=== PATIENT | female | born 1990 | race American Indian/Alaskan Native ===

== ENCOUNTER 2017-04-05 02:28 | Emergency (ER) | payer MEDICAID ==
[2017-04-05 03:04] LABS: Basophils % (Auto) 0.8 % (0.0-1.8); Eosinophils % (Auto) 2.1 % (0.0-4.3); Hemoglobin 12.9 gm/dl (10.1-14.3); Mean Corpuscular HGB Conc 35 % (30-34); Mean Corpuscular Hemoglobin 32 pg (28-32); Mean Corpuscular Volume 91 fl (79-97); Platelet Count 149 K/mm3 (140-440); Red Blood Count 4.07 M/mm3 (3.65-5.03); Red Cell Distribution Width 12.1 % (13.2-15.2); White Blood Count 4.6 K/mm3 (4.5-11.0)
[2017-04-05 03:37] LABS: Bacteria,Urine 1+ /HPF (Negative); Bilirubin,Urine NEG (Negative); Blood,Urine LG (Negative); Ketones,Urine NEG (Negative); Leukocyte Esterase,Urine TR (Negative); Nitrite,Urine NEG (Negative); Protein,Urine <15 mg/dL mg/dL (Negative); Urobilinogen,Urine < 2.0 mg/dL (<2.0)
[2017-04-05 09:19] VITALS: BP 118/73
[2017-04-05] MEDS ORDERED: NACL 0.9% 1000 ML 2,000 ML IV ONE (10:11)
--- NOTE | 2017-04-05 10:12 | Emergency Department Report ---
ED Female HPI - General Chief complaint: Vaginal Bleeding Stated complaint: VAGINAL BLEEDING Time Seen by Provider: 04/05/17 10:11 Source: patient Mode of arrival: Ambulatory Limitations: No Limitations - History of Present Illness Initial comments: This is a 27-year-old female who is previously unknown to this provider. She is 2, para 0. She can't recall her last menstrual period, although she thinks it was 2 months ago. Patient reports a lifetime history of irregular menstruation. Patient presents to the ER with vaginal bleeding. It started this morning. It is intermittent, and does not have exacerbating or relieving factors, and it does not radiate anywhere. Patient denies headache, neck pain, chest pain, shortness of breath, urinary symptoms, patient does not think that she is today. MD Complaint: vaginal bleeding -: Gradual Consistency: intermittent Improves with: none Worsens with: none Are you Now?: Yes (patient found to be in the ER, but did not know that she was pregn) Associated Symptoms: vaginal bleeding, abdominal pain (cramping). denies: vaginal discharge, nausea/vomiting, fever/chills, headaches, loss of appetite, dysuria, hematuria, shortness of breath, syncope, weakness - Related Data Sexually active: Yes Previous Rx's Medication Instructions Recorded Last Taken Type Ibuprofen [Motrin] 600 mg PO Q8H PRN #30 tablet 03/21/15 Unknown Rx Ondansetron [Zofran Odt] 4 mg PO Q4H #7 tab.rapdis 03/21/15 Unknown Rx Sulfamethoxazole/Trimethoprim 1 each PO BID #14 tablet 03/21/15 Unknown Rx [Bactrim DS TAB] traMADol [Ultram] 50 mg PO Q6HR PRN #14 tablet 03/21/15 Unknown Rx Doxylamine Succinate/Vit B6 1 each PO QHS PRN #30 tablet. 04/05/17 Unknown Rx [Nilsa Stearns 10-10 mg Tablet] Vit Calc,Iron,Folic 1 each PO QDAY #30 tablet 04/05/17 Unknown Rx [ Vitamins] Allergies Allergy/AdvReac Type Severity Reaction Status Date / Time No Known Allergies Allergy Unverified 03/21/15 17:27 ED Review of Systems ROS: Stated complaint: VAGINAL BLEEDING Other details as noted in HPI Constitutional: denies: fever, malaise Eyes: denies: vision change ENT: denies: epistaxis Respiratory: denies: cough Cardiovascular: denies: chest pain Gastrointestinal: denies: vomiting Genitourinary: abnormal menses. denies: dysuria Musculoskeletal: denies: back pain Skin: denies: lesions Neurological: denies: weakness ED Past Medical Hx - Past Medical History Previous Medical History?: No - Surgical History Past Surgical History?: No - Social History Smoking Status: Never Smoker Substance Use Type: None - Medications Home Medications: Home Medications Medication Instructions Recorded Confirmed Last Taken Type Ibuprofen [Motrin] 600 mg PO Q8H PRN #30 tablet 03/21/15 Unknown Rx Ondansetron [Zofran Odt] 4 mg PO Q4H #7 tab.rapdis 03/21/15 Unknown Rx Sulfamethoxazole/Trimethoprim 1 each PO BID #14 tablet 03/21/15 Unknown Rx [Bactrim DS TAB] traMADol [Ultram] 50 mg PO Q6HR PRN #14 tablet 03/21/15 Unknown Rx Doxylamine Succinate/Vit B6 1 each PO QHS PRN #30 tablet. 04/05/17 Unknown Rx [Nilsa Dr 10-10 mg Tablet] Vit Calc,Iron,Folic 1 each PO QDAY #30 tablet 04/05/17 Unknown Rx [ Vitamins] ED Physical Exam - General Limitations: No Limitations General appearance: alert, in no apparent distress - Head Head exam: Present: atraumatic, normocephalic - Eye Eye exam: Present: normal appearance, EOMI. Absent: nystagmus - ENT ENT exam: Present: normal exam, normal orophraynx, mucous membranes moist, normal external ear exam - Neck Neck exam: Present: normal inspection, full ROM. Absent: tenderness, meningismus - Respiratory Respiratory exam: Present: normal lung sounds bilaterally. Absent: respiratory distress, chest wall tenderness - Cardiovascular Cardiovascular Exam: Present: regular rate, normal rhythm, normal heart sounds. Absent: systolic murmur, diastolic murmur, rubs, gallop - GI/Abdominal GI/Abdominal exam: Present: soft, normal bowel sounds. Absent: distended, tenderness, guarding, rebound, rigid, pulsatile mass - External exam: Present: normal external exam Speculum exam: Present: normal speculum exam, vaginal bleeding. Absent: cervical discharge Bi-manual exam: Present: normal bi-manual exam, other (escorted by nurse selene dela cruz). Absent: cervical motion tendernes, adnexal tenderness, adnexal mass - Extremities Exam Extremities exam: Present: normal inspection, full ROM, normal capillary refill. Absent: pedal edema, joint swelling, calf tenderness - Back Exam Back exam: Present: normal inspection, full ROM. Absent: tenderness, CVA tenderness (R), paraspinal tenderness, vertebral tenderness - Neurological Exam Neurological exam: Present: alert, oriented X3, CN II-XII intact, other ( Extraocular movements intact. Tongue midline. No facial droop. Facial sensation intact to light touch in the V1, V2, V3 distribution bilaterally. 5 and 5 strength in 4 extremities.. Sensation is intact to light touch in 4 extremities.). Absent: motor sensory deficit - Psychiatric Psychiatric exam: Present: normal affect, normal mood - Skin Skin exam: Present: warm, dry, intact, normal color. Absent: rash ED Course Vital Signs 04/05/17 04/05/17 02:33 09:18 Temperature 98.4 F 98.6 F Pulse Rate 78 18 L Respiratory 18 18 Rate Blood Pressure 113/69 Blood Pressure 118/73 [Left] O2 Sat by Pulse 98 99 Oximetry - Reevaluation(s) Reevaluation #1: 04/05/17 11:07 Differential diagnosis, including without limited to: Miscarriage, threatened miscarriage, , ectopic Assessment and plan: 27-year-old female with vaginal bleeding, found to be . She is afebrile with normal vital signs, had a transient episode of hypotension. When this provider walks into the room to evaluate the patient, the patient is playing in a cellular phone, and is in no distress. Her abdomen is soft and benign, with no rebound, guarding or peritoneal signs. Transvaginal ultrasound is ordered, type and screen is ordered. Gynecologic exam is pending at this time. Urinalysis appreciated, patient does not endorse any urinary symptoms. Reevaluation #2: 04/05/17 13:05 Vital signs have remained stable his previous evaluation, no further episodes of hypotension, patient playing on a cellular phone, therefore IV fluids canceled. Pelvic ultrasound confirms IUP. Patient given appropriate anticipatory guidance. Patient will be instructed to follow up with outpatient gynecology. Return precautions are reviewed. ED Medical Decision Making - Lab Data Result diagrams: 04/05/17 02:43 Vital Signs 04/05/17 04/05/17 02:33 09:18 Temperature 98.4 F 98.6 F Pulse Rate 78 18 L Respiratory 18 18 Rate Blood Pressure 113/69 Blood Pressure 118/73 [Left] O2 Sat by Pulse 98 99 Oximetry Lab Results 04/05/17 04/05/17 04/05/17 Range/Units 02:43 02:43 02:43 WBC 4.6 (4.5-11.0) K/mm3 RBC 4.07 (3.65-5.03) M/mm3 Hgb 12.9 (10.1-14.3) gm/dl Hct 37.0 (30.3-42.9) % MCV 91 (79-97) fl MCH 32 (28-32) pg MCHC 35 H (30-34) % RDW 12.1 L (13.2-15.2) % Plt Count 149 (140-440) K/mm3 Lymph % (Auto) 49.9 H (13.4-35.0) % [place] % (Auto) 9.9 H (0.0-7.3) % Eos % (Auto) 2.1 (0.0-4.3) % Baso % (Auto) 0.8 (0.0-1.8) % Lymph # 2.3 (1.2-5.4) K/mm3 [place] # 0.5 (0.0-0.8) K/mm3 Eos # 0.1 (0.0-0.4) K/mm3 Baso # 0.0 (0.0-0.1) K/mm3 Seg Neutrophils % 37.3 L (40.0-70.0) % Seg Neutrophils # 1.7 L (1.8-7.7) K/mm3 HCG, Qual Positive (Negative) HCG, Quant 17343 H (0-4) mIU/mL Urine Color (Yellow) Urine Turbidity (Clear) Urine pH (5.0-7.0) Ur Specific [place] (1.003-1.030) Urine Protein (Negative) mg/dL Urine Glucose (UA) (Negative) mg/dL Urine Ketones (Negative) mg/dL Urine Blood (Negative) Urine Nitrite (Negative) Urine Bilirubin (Negative) Urine Urobilinogen (<2.0) mg/dL Ur Leukocyte Esterase (Negative) Urine WBC (Auto) (0.0-6.0) /HPF Urine RBC (Auto) (0.0-6.0) /HPF U Epithel Cells (Auto) (0-13.0) /HPF Urine Bacteria (Auto) (Negative) /HPF Blood Type Antibody Screen 04/05/17 04/05/17 Range/Units 02:43 Unknown WBC (4.5-11.0) K/mm3 RBC (3.65-5.03) M/mm3 Hgb (10.1-14.3) gm/dl Hct (30.3-42.9) % MCV (79-97) fl MCH (28-32) pg MCHC (30-34) % RDW (13.2-15.2) % Plt Count (140-440) K/mm3 Lymph % (Auto) (13.4-35.0) % [place] % (Auto) (0.0-7.3) % Eos % (Auto) (0.0-4.3) % Baso % (Auto) (0.0-1.8) % Lymph # (1.2-5.4) K/mm3 [place] # (0.0-0.8) K/mm3 Eos # (0.0-0.4) K/mm3 Baso # (0.0-0.1) K/mm3 Seg Neutrophils % (40.0-70.0) % Seg Neutrophils # (1.8-7.7) K/mm3 HCG, Qual (Negative) HCG, Quant (0-4) mIU/mL Urine Color Yellow (Yellow) Urine Turbidity Clear (Clear) Urine pH 7.0 (5.0-7.0) Ur Specific [place] 1.011 (1.003-1.030) Urine Protein <15 mg/dl (Negative) mg/dL Urine Glucose (UA) Neg (Negative) mg/dL Urine Ketones Neg (Negative) mg/dL Urine Blood Lg (Negative) Urine Nitrite Neg (Negative) Urine Bilirubin Neg (Negative) Urine Urobilinogen < 2.0 (<2.0) mg/dL Ur Leukocyte Esterase Tr (Negative) Urine WBC (Auto) 31.0 H (0.0-6.0) /HPF Urine RBC (Auto) 87.0 (0.0-6.0) /HPF U Epithel Cells (Auto) < 1.0 (0-13.0) /HPF Urine Bacteria (Auto) 1+ (Negative) /HPF Blood Type O POSITIVE Antibody Screen Negative Critical care attestation.: If time is entered above; I have spent that time in minutes in the direct care of this critically ill patient, excluding procedure time. ED Disposition Clinical Impression: Miscarriage Disposition: DC-01 TO HOME OR SELFCARE Is pt being admited?: No Does the pt Need Aspirin: No Condition: Stable Instructions: Threatened Miscarriage (ED) Additional Instructions: As we discussed, patient is . Avoid consumption of Ultram, narcotics, alcohol, ibuprofen, Motrin, Naprosyn, Aleve, aspirin. Rest and avoid heavy lifting, and avoid strenuous physical activity. Do not engage in sex or sexual activity until cleared by a analytical chemist. Follow-up with a analytical chemist as soon as possible. Return to the ER right away with new pain, worsened pain, migration of pain, fevers, chills, lethargy, irritability, projectile vomiting, confusion, change in mental status, bleeding more than 2 pads per hour, dizziness, lightheadedness. Prescriptions: Doxylamine Succinate/Vit B6 [Nilsa Stearns 10-10 mg Tablet] 1 each PO QHS PRN #30 tablet.dr CRAVEN Reason: Nausea Vit Calc,Iron,Folic [ Vitamins] 1 each PO QDAY #30 tablet Referrals: [facility] [Primary Care Provider] - 3-5 Days [facility] [Provider Group] - 3-5 Days [facility] [Provider Group] - 3-5 Days [facility] [Provider Group] - 3-5 Days
--- NOTE | 2017-04-05 11:29 | Ultrasound Report ---
ULTRASOUND OB LESS THAN 14 WEEKS FETUS ULTRASOUND OB TRANSVAGINAL HISTORY: Vaginal bleeding during . COMPARISON: None. TECHNIQUE: Transabdominal and transvaginal ultrasound with color doppler interrogation. FINDINGS: Uterus: The uterus is anteverted and measures 11.5 x 5.5 x 7.3 cm. No uterine fibroid disease is appreciated. The cervix is unremarkable. Endometrium: An intrauterine gestational sac containing a yolk sac is identified. No clear or pole at this time. No heart tones could be detected. Gestational sac diameter measures 2.0 cm which correlates with a 6 week, and 6 day . Estimated due date 11/23/16. Right ovary: 3.4 x 1.5 x 3.6 cm. No focal abnormality. Left ovary: 4.0 x 1.7 x 2.1 cm. A 2.1 cm corpus luteum cyst is suspected in the left ovary. No pelvic fluid or mass is identified. Normal color doppler interrogation. A small subchorionic hemorrhage is seen posterior to the gestational sac. IMPRESSION: An intrauterine gestational sac containing a small yolk sac is identified. No discrete pole or heart tones could be demonstrated at this time. This could represent a normal early intrauterine . Blighted ovum cannot be excluded. Close interval followup is recommended Small subchorionic hemorrhage.
== END 2017-04-05 13:35 | disposition home or self-care (01) ==
LOC: ED 02:28
DX: O03.9 Complete or unspecified spontaneous abortion without complication (principal); Z3A.00 Weeks of gestation of pregnancy not specified
CPT/HCPCS: 36415; 76801; 76817; 81001; 84702; 84703; 85025; 86850; 86900; 86901; 99284

== ENCOUNTER 2017-04-28 16:41 | Emergency (ER) | payer MEDICAID ==
[2017-04-28 17:52] LABS: Basophils % (Auto) 0.7 % (0.0-1.8); Eosinophils % (Auto) 0.1 % (0.0-4.3); Hemoglobin 12.8 gm/dl (10.1-14.3); Lymphocytes # (Auto) 0.7 K/mm3 (1.2-5.4); Lymphocytes % (Auto) 13.3 % (13.4-35.0); Mean Corpuscular HGB Conc 35 % (30-34); Mean Corpuscular Hemoglobin 32 pg (28-32); Mean Corpuscular Volume 91 fl (79-97); Monocytes # (Auto) 0.7 K/mm3 (0.0-0.8); Monocytes % (Auto) 13.3 % (0.0-7.3); Platelet Count 146 K/mm3 (140-440); Red Blood Count 4.05 M/mm3 (3.65-5.03); Red Cell Distribution Width 11.7 % (13.2-15.2)
[2017-04-28 19:03] LABS: Bacteria,Urine 1+ /HPF (Negative); Bilirubin,Urine NEG (Negative); Blood,Urine MOD (Negative); Color,Urine Red (Yellow); Mucus,Urine 2+ /HPF; Nitrite,Urine NEG (Negative); Urobilinogen,Urine < 2.0 mg/dL (<2.0)
[2017-04-29] MEDS ORDERED: TYLENOL PO ONE (04:17)
[2017-04-29] MEDS ORDERED: TYLENOL ONE (04:20)
--- NOTE | 2017-04-29 06:22 | Ultrasound Report ---
FINAL REPORT EXAM: US OB < = 14 WEEKS FETUS HISTORY: abd pain COMPARISONS: None. FINDINGS: Transabdominal and transvaginal grayscale, color and M-mode 1st trimester ultrasound Fluid-filled irregularly-shaped sac in the endometrium contains a suggested 2-3 millimeter yolk sac. No pole identified. Mean sac diameter is approximately 28 millimeters, which corresponds to estimated gestational age of 7 weeks 6 days and delivery date of 12/10/2017. No perigestational hemorrhage. No significant free fluid in the pelvis. The left ovary is not visualized. The right ovary is sonographically unremarkable and measures 3.3 x 1.2 x 2.2 cm. IMPRESSION: Probable gestational sac with irregular morphology contains a suggested morphologically normal yolk sac, however no pole is identified. Estimated gestational age is 7 weeks 6 days based on mean sac diameter. A pole should be visualized based on mean sac diameter. Differential diagnosis failed/anembryonic . Close interval clinical and sonographic follow-up is suggested.
--- NOTE | 2017-04-29 06:24 | Ultrasound Report ---
FINAL REPORT EXAM: US OB TRANSVAGINAL HISTORY: abd pain COMPARISONS: None. FINDINGS: Transvaginal grayscale and color Doppler 1st trimester ultrasound Fluid-filled irregularly-shaped sac in the endometrium contains a suggested 2-3 millimeter yolk sac. No pole identified. Mean sac diameter is approximately 28 millimeters, which corresponds to estimated gestational age of 7 weeks 6 days and delivery date of 12/10/2017. A small perigestational hemorrhage may be present involving less than 50 percent of the gestational sac surface area. No significant free fluid in the pelvis. The left ovary is not visualized. The right ovary is sonographically unremarkable and measures 3.3 x 1.2 x 2.2 cm. IMPRESSION: Probable gestational sac with irregular morphology contains a suggested morphologically normal yolk sac, however no pole is identified. Estimated gestational age is 7 weeks 6 days based on mean sac diameter. A pole should be visualized based on mean sac diameter. Differential diagnosis includes failed/anembryonic . Close interval clinical and sonographic follow-up is suggested.
[2017-04-29] MEDS ORDERED: MACROBID PO ONE (06:43)
--- NOTE | 2017-04-29 07:13 | Emergency Department Report ---
ED Female HPI - General Chief complaint: Abdominal Pain Stated complaint: ABDOMINAL PAIN/VAGINAL BLEEDING Time Seen by Provider: 04/29/17 06:40 Source: patient, old records reviewed Mode of arrival: Ambulatory Limitations: No Limitations - History of Present Illness Initial comments: 27 year old female with no significant past medical history presents to the hospital currently with complaints of vaginal bleeding since April 05 that increased when she presented to the hospital on the . This is patient's second and she has a history of one . Patient was seen and evaluated here on the for vaginal bleeding. Ultrasound showed IUP with gestational sac and yolk sac without pole. Also a small subchorionic hemorrhages visualized. Patient has not yet seen MACHINE SPLITTER since that visit. She has her first appointment scheduled for my TIME STUDY ENGINEER for 320 today. She presents here because bleeding increased with 10/10 cramping pain. Patient is a half a bag of regular pads in one day with clots. She states bleeding has improved since in the ED. Pain improved with Tylenol received in the ED. Patient denies dysuria, fever, or syncope. - Related Data Previous Rx's Medication Instructions Recorded Last Taken Type Ibuprofen [Motrin] 600 mg PO Q8H PRN #30 tablet 03/21/15 Unknown Rx Ondansetron [Zofran Odt] 4 mg PO Q4H #7 tab.rapdis 03/21/15 Unknown Rx Sulfamethoxazole/Trimethoprim 1 each PO BID #14 tablet 03/21/15 Unknown Rx [Bactrim DS TAB] traMADol [Ultram] 50 mg PO Q6HR PRN #14 tablet 03/21/15 Unknown Rx Doxylamine Succinate/Vit B6 1 each PO QHS PRN #30 tablet. 04/05/17 Unknown Rx [Nilsa Stearns 10-10 mg Tablet] Vit Calc,Iron,Folic 1 each PO QDAY #30 tablet 04/05/17 Unknown Rx [ Vitamins] Nitrofurantoin [place]/M-Cryst 100 mg PO Q12HR #14 capsule 04/29/17 Unknown Rx [Macrobid CAP] Allergies Allergy/AdvReac Type Severity Reaction Status Date / Time No Known Allergies Allergy Unverified 03/21/15 17:27 ED Review of Systems ROS: Stated complaint: ABDOMINAL PAIN/VAGINAL BLEEDING Other details as noted in HPI Comment: All other systems reviewed and negative Other: Constitutional: No fevers chills Eyes: No eye pain visual changes ENT: No ear pain or throat pain Neck: Denies pain Respiratory: Denies cough wheezing shortness of breath Cardiovascular: Denies chest pain, palpitations, syncope GI: Denies nausea, vomiting, diarrhea : Denies dysuria Musculoskeletal: Denies back pain Skin: Denies rash, lesions, erythema Neurologic: Denies headache, numbness, weakness Psychiatric: Denies suicidal ideation, hallucinations ED Past Medical Hx - Past Medical History Previous Medical History?: No - Surgical History Past Surgical History?: No - Social History Smoking Status: Current Every Day Smoker Substance Use Type: None - Medications Home Medications: Home Medications Medication Instructions Recorded Confirmed Last Taken Type Ibuprofen [Motrin] 600 mg PO Q8H PRN #30 tablet 03/21/15 Unknown Rx Ondansetron [Zofran Odt] 4 mg PO Q4H #7 tab.rapdis 03/21/15 Unknown Rx Sulfamethoxazole/Trimethoprim 1 each PO BID #14 tablet 03/21/15 Unknown Rx [Bactrim DS TAB] traMADol [Ultram] 50 mg PO Q6HR PRN #14 tablet 03/21/15 Unknown Rx Doxylamine Succinate/Vit B6 1 each PO QHS PRN #30 tablet. 04/05/17 Unknown Rx [Dicshin Dr 10-10 mg Tablet] Vit Calc,Iron,Folic 1 each PO QDAY #30 tablet 04/05/17 Unknown Rx [ Vitamins] Nitrofurantoin [place]/M-Cryst 100 mg PO Q12HR #14 capsule 04/29/17 Unknown Rx [Macrobid CAP] ED Physical Exam - General Limitations: No Limitations - Other Other exam information: General: No limitations, patient is alert in no acute distress Head exam: Atraumatic, normocephalic Eyes exam: Normal appearance ENT: Moist mucous membrane, normal oropharynx Neck exam: Normal inspection, full range of motion, no meningismus nontender Respiratory exam: Clear to auscultation bilateral, no wheezes, rales, crackles Cardiovascular: Normal rate and rhythm, normal heart sounds Abdomen: Soft, nondistended, mild suprapubic tenderness, with normal bowel sounds, no rebound, or guarding Extremity: Full range of motion normal inspection no deformity Back: Normal Inspection, full range of motion, no tenderness Neurologic: Alert, oriented x3, cranial nerves intact, no motor or sensory deficit Psychiatric: normal affect, normal mood Skin: Warm, dry, intact ED Course Vital Signs 04/28/17 04/29/17 04/29/17 17:17 00:50 04:25 Temperature 99.9 F H 98.4 F Pulse Rate 106 H 94 H Respiratory 16 14 18 Rate Blood Pressure 111/64 107/65 Blood Pressure [Left] O2 Sat by Pulse 100 100 Oximetry 04/29/17 04/29/17 04/29/17 05:05 05:25 06:40 Temperature 98.5 F Pulse Rate 97 H Respiratory 16 18 16 Rate Blood Pressure Blood Pressure 107/63 [Left] O2 Sat by Pulse 95 95 Oximetry 04/29/17 07:15 Temperature Pulse Rate 78 Respiratory 18 Rate Blood Pressure Blood Pressure 105/79 [Left] O2 Sat by Pulse 98 Oximetry - Reevaluation(s) Reevaluation #1: 04/29/17 07:17 Tylenol given prior to my evaluation with reduction in pain. Macrobid ordered for urine leukocytosis - Consultations Consultation #1: 04/29/17 07:[address] Michael marketing operations specialist physician for my [employer] STUDY ENGINEER. Agrees with disposition to follow up in office today for probable miscarriage ED Medical Decision Making - Lab Data Result diagrams: 04/28/17 17:28 Lab Results 04/28/17 04/28/17 04/28/17 Range/Units 17:28 17:28 17:30 WBC 5.6 (4.5-11.0) K/mm3 RBC 4.05 (3.65-5.03) M/mm3 Hgb 12.8 (10.1-14.3) gm/dl Hct 37.0 (30.3-42.9) % MCV 91 (79-97) fl MCH 32 (28-32) pg MCHC 35 H (30-34) % RDW 11.7 L (13.2-15.2) % Plt Count 146 (140-440) K/mm3 Lymph % (Auto) 13.3 L (13.4-35.0) % [place] % (Auto) 13.3 H (0.0-7.3) % Eos % (Auto) 0.1 (0.0-4.3) % Baso % (Auto) 0.7 (0.0-1.8) % Lymph # 0.7 L (1.2-5.4) K/mm3 [place] # 0.7 (0.0-0.8) K/mm3 Eos # 0.0 (0.0-0.4) K/mm3 Baso # 0.0 (0.0-0.1) K/mm3 Seg Neutrophils % 72.6 H (40.0-70.0) % Seg Neutrophils # 4.0 (1.8-7.7) K/mm3 HCG, Quant 2575 H (0-4) mIU/mL Urine Color (Yellow) Urine Turbidity (Clear) Urine pH (5.0-7.0) Ur Specific [place] (1.003-1.030) Urine Protein (Negative) mg/dL Urine Glucose (UA) (Negative) mg/dL Urine Ketones (Negative) mg/dL Urine Blood (Negative) Urine Nitrite (Negative) Urine Bilirubin (Negative) Urine Urobilinogen (<2.0) mg/dL Ur Leukocyte Esterase (Negative) Urine WBC (Auto) (0.0-6.0) /HPF Urine RBC (Auto) (0.0-6.0) /HPF U Epithel Cells (Auto) (0-13.0) /HPF Urine Bacteria (Auto) (Negative) /HPF Urine Mucus /HPF Blood Type O POSITIVE Antibody Screen Negative 04/28/17 Range/Units 18:06 WBC (4.5-11.0) K/mm3 RBC (3.65-5.03) M/mm3 Hgb (10.1-14.3) gm/dl Hct (30.3-42.9) % MCV (79-97) fl MCH (28-32) pg MCHC (30-34) % RDW (13.2-15.2) % Plt Count (140-440) K/mm3 Lymph % (Auto) (13.4-35.0) % [place] % (Auto) (0.0-7.3) % Eos % (Auto) (0.0-4.3) % Baso % (Auto) (0.0-1.8) % Lymph # (1.2-5.4) K/mm3 [place] # (0.0-0.8) K/mm3 Eos # (0.0-0.4) K/mm3 Baso # (0.0-0.1) K/mm3 Seg Neutrophils % (40.0-70.0) % Seg Neutrophils # (1.8-7.7) K/mm3 HCG, Quant (0-4) mIU/mL Urine Color Red (Yellow) Urine Turbidity Clear (Clear) Urine pH 8.0 H (5.0-7.0) Ur Specific [place] 1.010 (1.003-1.030) Urine Protein 100 mg/dl (Negative) mg/dL Urine Glucose (UA) 150 (Negative) mg/dL Urine Ketones Neg (Negative) mg/dL Urine Blood Mod (Negative) Urine Nitrite Neg (Negative) Urine Bilirubin Neg (Negative) Urine Urobilinogen < 2.0 (<2.0) mg/dL Ur Leukocyte Esterase Neg (Negative) Urine WBC (Auto) 13.0 H (0.0-6.0) /HPF Urine RBC (Auto) 62.0 (0.0-6.0) /HPF U Epithel Cells (Auto) < 1.0 (0-13.0) /HPF Urine Bacteria (Auto) 1+ (Negative) /HPF Urine Mucus 2+ /HPF Blood Type Antibody Screen - Radiology Data Radiology results: report reviewed Transvaginal/pelvic ultrasound: Positive intrauterine gestational sac with a regular morphology contains a suggestive morphology normal yolk sac. However no pole is identified. Estimated gestation age of 7 weeks and 6 days. pole should be visualized based on mean sac diameter. - Medical Decision Making On patient's visit on the hCG Quant was [phone] and today is 2575 Ultrasound from April 05 showed an IUP and a small yolk sac without pole. Differential included early versus blighted ovum. Positive subchorionic hemorrhage. Today still does not show a pole despite gestational age of 7 weeks and 6 days. Differential includes scale/an embryonic With decreasing Quant patient is likely having a miscarriage Blood type B positive and patient does not require RhoGAM Patient is not anemic and does not require blood transfusion Pain improves and vital signs stable Macrobid provided for urine leukocytosis Case discussed with Dr. Michael with [facility] - Differential Diagnosis miscarriage, , subchorionic hemorrhage, ectopic Critical Care Time: No Critical care attestation.: If time is entered above; I have spent that time in minutes in the direct care of this critically ill patient, excluding procedure time. ED Disposition Clinical Impression: Miscarriage, Urine leukocytes increased Disposition: DC-01 TO HOME OR SELFCARE Is pt being admited?: No Does the pt Need Aspirin: No Condition: Stable Instructions: Spontaneous Miscarriage (ED), Urinary Tract Infection in Women ( ED) Additional Instructions: Follow up with the MACHINE SPLITTER doctor today as scheduled. Take Tylenol as needed for pain. Take the antibiotic until completion. Return if symptoms worsen as indicated by your discharge instructions Prescriptions: Nitrofurantoin [place]/M-Cryst [Macrobid CAP] 100 mg PO Q12HR #14 capsule Referrals: [facility] [Provider Group] - 04/29/17 3:20 pm Time of Disposition: 07:36
[2017-04-29 07:34] VITALS: BP 105/79
== END 2017-04-29 08:40 | disposition home or self-care (01) ==
LOC: ED 16:41
DX: O03.9 Complete or unspecified spontaneous abortion without complication (principal); O23.41 Unspecified infection of urinary tract in pregnancy, first trimester; D72.829 Elevated white blood cell count, unspecified; O99.331 Smoking (tobacco) complicating pregnancy, first trimester; F17.200 Nicotine dependence, unspecified, uncomplicated; Z3A.01 Less than 8 weeks gestation of pregnancy
CPT/HCPCS: 36415; 76801; 76817; 81001; 84702; 85025; 86850; 86900; 86901

== ENCOUNTER 2018-07-02 10:00 | Emergency (ER) | payer MEDICAID, OTHER ==
[2018-07-02 10:07] VITALS: BP 113/59
--- NOTE | 2018-07-02 11:43 | Emergency Department Report ---
HPI - General Chief Complaint: Rectal Pain Time Seen by Provider: 07/02/18 11:24 - HPI HPI: 28-year-old AA female presents to the emergency department with complaint of some rectal pain and pain to the external vagina that has been going on since about 3 AM last night. Since about 10 AM this morning the pain has improved but is still there. The pain is positional. She denies any dysuria, vaginal bleeding or discharge, rectal bleeding. She denies any trauma or any objects being inserted into either the rectum or vagina. She has not taken anything for her symptoms prior to presentation. She denies any past medical history. ED Past Medical Hx - Past Medical History Previous Medical History?: No - Surgical History Past Surgical History?: No - Social History Smoking Status: Never Smoker Substance Use Type: Alcohol - Medications Home Medications: Home Medications Medication Instructions Recorded Confirmed Last Taken Type Ibuprofen [Motrin] 600 mg PO Q8H PRN #30 tablet 03/21/15 Unknown Rx Ondansetron [Zofran Odt] 4 mg PO Q4H #7 tab.rapdis 03/21/15 Unknown Rx Sulfamethoxazole/Trimethoprim 1 each PO BID #14 tablet 03/21/15 Unknown Rx [Bactrim DS TAB] traMADol [Ultram] 50 mg PO Q6HR PRN #14 tablet 03/21/15 Unknown Rx Doxylamine Succinate/Vit B6 1 each PO QHS PRN #30 tablet. 04/05/17 Unknown Rx [Nilsa Stearns 10-10 mg Tablet] Vit Calc,Iron,Folic 1 each PO QDAY #30 tablet 04/05/17 Unknown Rx [ Vitamins] RX: Nitrofurantoin Atkinson/M-Cryst 100 mg PO Q12HR #14 capsule 07/02/18 Unknown Rx [Macrobid CAP] ED Review of Systems ROS: Stated complaint: SHARP PAIN AROUND BUTTOCKS Other details as noted in HPI Comment: All other systems reviewed and negative Constitutional: denies: chills, fever Eyes: denies: eye pain, vision change ENT: denies: ear pain, throat pain Respiratory: denies: cough, shortness of breath Cardiovascular: denies: chest pain, palpitations Gastrointestinal: other (rectal pain). denies: abdominal pain, vomiting Genitourinary: other (vaginal pain). denies: dysuria, discharge Musculoskeletal: denies: back pain, arthralgia Skin: denies: rash, lesions Neurological: denies: headache, weakness Physical Exam - Physical Exam Vital Signs: Vital Signs 07/02/18 10:06 Temperature 98.6 F Pulse Rate 76 Respiratory 16 Rate Blood Pressure 113/59 O2 Sat by Pulse 100 Oximetry Physical Exam: GENERAL: The patient is well-developed well-nourished. HEENT: Normocephalic. Atraumatic. Patient has moist mucous membranes. EYES: Extraocular motions are intact. NECK: Supple. Trachea is midline. CHEST/LUNGS: Clear to auscultation. There is no respiratory distress noted. HEART/CARDIOVASCULAR: Regular. There is no tachycardia. There is no obvious murmur. ABDOMEN: Abdomen is soft, nontender. Patient has normal bowel sounds. There is no abdominal distention. SKIN: Skin is warm and dry. NEURO: The patient is awake, alert, and oriented. The patient is cooperative. The patient has no focal neurologic deficits. The patient has normal speech. MUSCULOSKELETAL: There is no tenderness or deformity. There is no limitation range of motion. There is no evidence of acute injury. RECTAL: There is no visible hemorrhoids or lesions seen. VAGINAL: There are no visible rashes, lesions or any swelling seen to the vaginal area. ED Course Vital Signs 07/02/18 10:06 Temperature 98.6 F Pulse Rate 76 Respiratory 16 Rate Blood Pressure 113/59 O2 Sat by Pulse 100 Oximetry - Reevaluation(s) Reevaluation #1: 07/02/18 18:00 Rectal and vaginal examination was done with nurse Castro at bedside. ED Medical Decision Making - Medical Decision Making Patient presents to the emergency department with complaint of some acute rectal and vaginal pain since last night. On examination there are no signs of any rash, lesions or hemorrhoids or anything obviously abnormal. Urinalysis shows a mild urinary tract infection. The patient is not . She will be started on antibiotics. She will return to the ER with any worsening of her symptoms or any acute distress. - Differential Diagnosis hemorrhoid, Bartholin cyst, malignancy Critical Care Time: No Critical care attestation.: If time is entered above; I have spent that time in minutes in the direct care of this critically ill patient, excluding procedure time. ED Disposition Clinical Impression: Rectal pain, Vaginal pain UTI (urinary tract infection) Qualifiers: Urinary tract infection type: acute cystitis Hematuria presence: without hematuria Qualified Code(s): N30.00 - Acute cystitis without hematuria Disposition: TO HOME OR SELFCARE Is pt being admited?: No Condition: Stable Instructions: Urinary Tract Infection in Women (ED) Additional Instructions: Please follow up with a primary care physician and [employer]. Return to the emergency Department with any worsening of your symptoms or any acute distress. Prescriptions: RX: Nitrofurantoin Atkinson/M-Cryst [Macrobid CAP] 100 mg PO Q12HR #14 capsule Referrals: PRIMARY CAREMD [Referring] - 3-5 Days [facility] [Outside] - 3-5 Days [facility] [Provider Group] - 3-5 Days MARIS TEE MD [Staff Physician] - 3-5 Days Time of Disposition: 13:24
[2018-07-02 12:54] LABS: Bilirubin,Urine NEG (Negative); Blood,Urine NEG (Negative); Color,Urine Yellow (Yellow); Mucus,Urine FEW /HPF
[2018-07-02 12:58] LABS: HCG Qualitative,Urine Negative (Negative)
[2018-07-02] MEDS ORDERED: MACROBID PO ONE (13:00)
== END 2018-07-02 13:36 | disposition home or self-care (01) ==
LOC: ED 10:00
DX: N39.0 Urinary tract infection, site not specified (principal)
CPT/HCPCS: 81001; 81025